=== PATIENT | male | born 1975 | race Caucasian/White ===

== ENCOUNTER 2017-07-22 17:24 | Emergency (ER) | payer SELFPAY, MEDICAID | END 2017-07-22 23:45 | disposition left against medical advice (07) | LOC: E/R 17:24 | DX: Z53.21 Procedure and treatment not carried out due to patient leaving prior to being seen by health care provider (principal) ==

== ENCOUNTER 2017-09-29 06:53 | Emergency (ER) | payer SELFPAY ==
[2017-09-29 07:29] LABS: ADD MAN DIFF? NO
[2017-09-29 07:33] LABS: WHITE BLOOD COUNT 8.8 10^3/ul (4.8-10.8)
[2017-09-29 07:33] LABS: BASOPHIL # 0.1 10^3/ul (0.0-0.1); BASOPHILS % 0.8 % (0.0-2.0); EOSINOPHILS # 0.1 10^3/ul (0.0-0.5); EOSINOPHILS % 1.3 % (0.0-7.0); HEMATOCRIT 45.8 % (42.0-52.0); HEMOGLOBIN 15.9 g/dl (14.0-18.0); LYMPHOCYTES # 2.4 10^3/ul (0.8-2.9); LYMPHOCYTES % 27.1 % (15.0-51.0); MEAN CORPUSCULAR HEMOGLOBIN 32.9 pg (29.0-33.0); MEAN CORPUSCULAR HGB CONC 34.7 g/dl (32.0-37.0); MEAN CORPUSCULAR VOLUME 94.6 fl (82.0-101.0); MEAN PLATELET VOLUME 9.7 fl (7.4-10.4); MONOCYTE # 0.7 10^3/ul (0.3-0.9); MONOCYTES % 8.4 % (0.0-11.0); NEUTROPHIL # 5.5 10^3/ul (1.6-7.5); NEUTROPHILS % 62.1 % (39.0-77.0); PLATELET COUNT 278 10^3/UL (140-415); RED BLOOD COUNT 4.84 10^6/ul (4.70-6.10); RED CELL DISTRIBUTION WIDTH 13.1 % (11.5-14.5)
[2017-09-29 07:48] LABS: ANION GAP 23 (8-16); BLOOD UREA NITROGEN 13 mg/dl (7-20); CALCIUM 8.9 mg/dl (8.4-10.2); CARBON DIOXIDE 21 mmol/L (21-31); CHLORIDE 107 mmol/L (97-110); CREATININE 0.83 mg/dl (0.61-1.24); GLUCOSE 121 mg/dl (70-220); POTASSIUM 3.6 mmol/L (3.5-5.1); SODIUM 147 mmol/L (135-144)
[2017-09-29 08:01] LABS: TROPONIN-I < 0.012 ng/ml (0.000-0.120)
== END 2017-09-29 08:27 | disposition home or self-care (01) ==
LOC: E/R 06:53
DX: R07.9 Chest pain, unspecified (principal); F41.1 Generalized anxiety disorder; Z79.82 Long term (current) use of aspirin
CPT/HCPCS: 36415; 71045; 80048; 84484; 85025; 99285-25

== ENCOUNTER 2017-10-18 04:03 | Emergency (ER) | payer MEDICAID ==
[2017-10-18] MEDS: SOD CHLORIDE 0.9% 1,000 ML IV (05:17)
[2017-10-18] MEDS: morphine 4 MG/ML VIAL IV (05:17)
[2017-10-18 05:18] LABS: ADD MAN DIFF? NO
[2017-10-18 05:20] LABS: WHITE BLOOD COUNT 5.1 10^3/ul (4.8-10.8)
[2017-10-18 05:20] LABS: BASOPHIL # 0.1 10^3/ul (0.0-0.1); EOSINOPHILS % 0.2 % (0.0-7.0); HEMATOCRIT 46.8 % (42.0-52.0); HEMOGLOBIN 16.1 g/dl (14.0-18.0); LYMPHOCYTES # 1.2 10^3/ul (0.8-2.9); LYMPHOCYTES % 23.8 % (15.0-51.0); MEAN CORPUSCULAR HEMOGLOBIN 32.6 pg (29.0-33.0); MEAN CORPUSCULAR HGB CONC 34.4 g/dl (32.0-37.0); MEAN CORPUSCULAR VOLUME 94.7 fl (82.0-101.0); MEAN PLATELET VOLUME 9.6 fl (7.4-10.4); MONOCYTE # 0.5 10^3/ul (0.3-0.9); MONOCYTES % 9.8 % (0.0-11.0); NEUTROPHIL # 3.3 10^3/ul (1.6-7.5); NEUTROPHILS % 64.8 % (39.0-77.0); PLATELET COUNT 283 10^3/UL (140-415); RED BLOOD COUNT 4.94 10^6/ul (4.70-6.10); RED CELL DISTRIBUTION WIDTH 12.6 % (11.5-14.5)
[2017-10-18 05:27] LABS: ADD UMIC NO; UR ASCORBIC ACID NEGATIVE (NEGATIVE); UR BILIRUBIN (Dip) NEGATIVE (NEGATIVE); UR BLOOD (Dip) NEGATIVE (NEGATIVE); UR CLARITY CLEAR (CLEAR); UR COLOR COLORLESS (YELLOW); UR GLUCOSE (Dip) NEGATIVE (NEGATIVE); UR KETONES (Dip) NEGATIVE (NEGATIVE); UR LEUKOCYTE ESTERASE (Dip) NEGATIVE Leu/ul (NEGATIVE); UR NITRITE (Dip) NEGATIVE (NEGATIVE); UR SPECIFIC GRAVITY (Dip) 1.002 (1.003-1.030); UR TOTAL PROTEIN (Dip) NEGATIVE (NEGATIVE); UR UROBILINOGEN (Dip) NEGATIVE (NEGATIVE)
[2017-10-18 05:38] LABS: ALANINE AMINOTRANSFERASE 47 IU/L (13-69); ALBUMIN 4.9 g/dl (3.3-4.9); ALBUMIN/GLOBULIN RATIO 1.16; ALKALINE PHOSPHATASE 92 IU/L (42-121); ANION GAP 19 (8-16); ASPARTATE AMINO TRANSFERASE 39 IU/L (15-46); BILIRUBIN,INDIRECT 0.3 mg/dl (0-1.1); BILIRUBIN,TOTAL 0.3 mg/dl (0.2-1.3); BLOOD UREA NITROGEN 8 mg/dl (7-20); CALCIUM 9.2 mg/dl (8.4-10.2); CARBON DIOXIDE 25 mmol/L (21-31); CHLORIDE 107 mmol/L (97-110); CREATININE 0.86 mg/dl (0.61-1.24); GLUCOSE 119 mg/dl (70-220); LIPASE 92 U/L (23-300); POTASSIUM 3.5 mmol/L (3.5-5.1); SODIUM 147 mmol/L (135-144); TOTAL PROTEIN 9.1 g/dl (6.1-8.1)
[2017-10-18 05:56] LABS: TROPONIN-I < 0.012 ng/ml (0.000-0.120)
== END 2017-10-18 06:39 | disposition home or self-care (01) ==
LOC: FTE 04:03
DX: F41.9 Anxiety disorder, unspecified (principal); R07.89 Other chest pain; Z79.82 Long term (current) use of aspirin
CPT/HCPCS: 36415; 71045; 80053; 81003; 83690; 84484; 85025; 93005; 96374; 99284-25

== ENCOUNTER 2017-10-27 05:41 | Emergency (ER) | payer SELFPAY, MEDICAID | END 2017-10-27 08:04 | disposition left against medical advice (07) | LOC: E/R 08:04 | DX: Z53.21 Procedure and treatment not carried out due to patient leaving prior to being seen by health care provider (principal) ==

== ENCOUNTER 2017-10-27 11:09 | Emergency (ER) | payer MEDICAID ==
[2017-10-27] MEDS: SOD CHLORIDE 0.9% 1,000 ML IV (12:25)
[2017-10-27] MEDS: LORAZEPAM 2 MG INJ IV (12:25)
[2017-10-27 12:36] LABS: ADD MAN DIFF? NO
[2017-10-27 12:38] LABS: BASOPHIL # 0.1 10^3/ul (0.0-0.1); BASOPHILS % 0.9 % (0.0-2.0); EOSINOPHILS % 0.4 % (0.0-7.0); HEMATOCRIT 45.6 % (42.0-52.0); HEMOGLOBIN 16.3 g/dl (14.0-18.0); LYMPHOCYTES # 1.8 10^3/ul (0.8-2.9); LYMPHOCYTES % 24.4 % (15.0-51.0); MEAN CORPUSCULAR HEMOGLOBIN 33.1 pg (29.0-33.0); MEAN CORPUSCULAR HGB CONC 35.7 g/dl (32.0-37.0); MEAN CORPUSCULAR VOLUME 92.7 fl (82.0-101.0); MEAN PLATELET VOLUME 9.7 fl (7.4-10.4); MONOCYTE # 0.7 10^3/ul (0.3-0.9); MONOCYTES % 8.9 % (0.0-11.0); NEUTROPHIL # 4.8 10^3/ul (1.6-7.5); PLATELET COUNT 300 10^3/UL (140-415); RED BLOOD COUNT 4.92 10^6/ul (4.70-6.10); RED CELL DISTRIBUTION WIDTH 12.1 % (11.5-14.5)
[2017-10-27 12:38] LABS: WHITE BLOOD COUNT 7.4 10^3/ul (4.8-10.8)
[2017-10-27] MEDS: FOLIC ACID 1 MG TAB PO (12:46)
[2017-10-27] MEDS: THIAMINE 100 MG TAB PO (12:47)
[2017-10-27 13:12] LABS: ALANINE AMINOTRANSFERASE 67 IU/L (13-69); ALBUMIN/GLOBULIN RATIO 1.25; ALKALINE PHOSPHATASE 102 IU/L (42-121); ANION GAP 20 (8-16); ASPARTATE AMINO TRANSFERASE 58 IU/L (15-46); BILIRUBIN,INDIRECT 0.3 mg/dl (0-1.1); BILIRUBIN,TOTAL 0.3 mg/dl (0.2-1.3); BLOOD UREA NITROGEN 10 mg/dl (7-20); CALCIUM 9.3 mg/dl (8.4-10.2); CARBON DIOXIDE 21 mmol/L (21-31); CHLORIDE 106 mmol/L (97-110); CREATININE 0.74 mg/dl (0.61-1.24); GLUCOSE 103 mg/dl (70-220); LIPASE 81 U/L (23-300); POTASSIUM 3.8 mmol/L (3.5-5.1); SODIUM 143 mmol/L (135-144)
[2017-10-27 13:41] LABS: TROPONIN-I < 0.012 ng/ml (0.000-0.120)
== END 2017-10-27 14:03 | disposition home or self-care (01) ==
LOC: E/R 11:09
DX: F14.10 Cocaine abuse, uncomplicated (principal); R40.2252 Coma scale, best verbal response, oriented, at arrival to emergency department; E86.0 Dehydration; F41.1 Generalized anxiety disorder; R00.2 Palpitations; R40.2362 Coma scale, best motor response, obeys commands, at arrival to emergency department; R40.2142 Coma scale, eyes open, spontaneous, at arrival to emergency department; Z87.891 Personal history of nicotine dependence; Z79.82 Long term (current) use of aspirin
CPT/HCPCS: 36415; 80053; 83690; 84484; 85025; 93005; 96374; 99284-25

== ENCOUNTER 2017-11-09 16:16 | Emergency (ER) | payer MEDICAID ==
[2017-11-09] MEDS: LORAZEPAM 0.5 MG TAB PO (17:17)
== END 2017-11-09 17:44 | disposition home or self-care (01) ==
LOC: FTE 16:16
DX: F41.9 Anxiety disorder, unspecified (principal); Z76.0 Encounter for issue of repeat prescription; Z79.82 Long term (current) use of aspirin
CPT/HCPCS: 99283; Z7502

== ENCOUNTER 2018-01-10 11:40 | Emergency (ER) | payer SELFPAY, MEDICAID ==
[2018-01-10] MEDS: LORAZEPAM 1 MG TAB PO (12:44)
== END 2018-01-10 13:42 | disposition home or self-care (01) ==
LOC: FTE 13:42
DX: F41.9 Anxiety disorder, unspecified (principal); Z79.82 Long term (current) use of aspirin
CPT/HCPCS: 99283

== ENCOUNTER 2018-02-15 20:36 | Emergency (ER) | payer MEDICAID ==
[2018-02-15] MEDS: LORAZEPAM 1 MG TAB PO (22:27)
== END 2018-02-15 22:36 | disposition home or self-care (01) ==
LOC: FTE 20:36
DX: F41.9 Anxiety disorder, unspecified (principal); Z79.82 Long term (current) use of aspirin
CPT/HCPCS: 99283; Z7610

== ENCOUNTER 2018-12-01 20:53 | Emergency (ER) | payer SELFPAY, MEDICAID ==
[2018-12-01] MEDS: LORAZEPAM 1 MG TAB PO (21:51)
== END 2018-12-01 22:24 | disposition home or self-care (01) ==
LOC: FTE 20:53
DX: F41.1 Generalized anxiety disorder (principal); I10 Essential (primary) hypertension; Z79.82 Long term (current) use of aspirin
CPT/HCPCS: 99283